=== PATIENT | male | born 1975 | race Hispanic/Latino ===

== ENCOUNTER 2024-06-28 22:15 | Inpatient (IN) | payer BC ==
[2024-06-28 23:33] LABS: #Basophils 0.03 10x3/uL (0.0-0.2); %Basophils 0.3 % (0.0-1.0); %Eosinophils 0.5 % (0.0-10.0); %Monocytes 9.5 % (0.0-10.0); %Neutrophils 67.4 % (42.0-75.0); Hematocrit 39.4 % (42.0-52.0); Hemoglobin 14.8 g/dL (14.0-18.0); Mean Corpuscular HGB CONC 37.6 g/dL (32.0-36.0); Mean Corpuscular Hemoglobin 32.2 pg (27.0-31.0); Mean Corpuscular Volume 85.8 fL (78.0-98.0); Mean Platelet Volume 9.5 fL (7.4-10.4); Platelet Count 251 10x3/uL (130-400); RBC Distribution Width 11.9 % (11.5-14.5); Red Blood Cell (RBC) Count 4.59 mill/uL (4.70-6.10)
[2024-06-28 23:49] LABS: Troponin I Less than 0.010 ng/mL (< 0.028)
[2024-06-29 00:03] LABS: ALT (SGPT) 89 U/L (8-55); AST (SGOT) 42 U/L (5-34); Albumin 3.8 g/dL (3.5-5.0); Alkaline Phosphatase 107 U/L (40-110); Anion Gap 17 mmol/L (10-20); BUN (Urea Nitrogen) 15 mg/dL (8.9-20.6); Bilirubin, Total 0.6 mg/dL (0.2-1.2); Calc. Creatinine Clearance 0 mL/min (70-130); Calcium 9.1 mg/dL (7.8-10.44); Carbon Dioxide 27 mmol/L (22-29); Chloride 92 mmol/L (98-107); Estimated GFR 73; Glucose 296 mg/dL (70-105); Potassium 2.5 mmol/L (3.5-5.1); Protein, Total 7.8 g/dL (6.0-8.3); Sodium 133 mmol/L (136-145)
[2024-06-29 00:30] LABS: Magnesium 2.2 mg/dL (1.6-2.6)
[2024-06-29] MEDS ORDERED: hydrALAZINE 20 MG/ML VIAL ONE (01:09)
[2024-06-29] MEDS ORDERED: Potassium Chloride 20 MEQ TAB ONE (01:09)
[2024-06-29] MEDS ORDERED: Amlodipine 5 MG TAB ONE (01:09)
[2024-06-29] MEDS ORDERED: Ondansetron PF 4 MG/2 ML Vial IVP PRN (01:14)
[2024-06-29] MEDS ORDERED: Labetalol HCl 100 MG/20 ML VIAL ONE (01:26)
[2024-06-29] MEDS ORDERED: niCARdipine 25 MG in Sodium Chloride 0.9% 250 ML 250 ML IVPB SCH (02:45)
[2024-06-29 04:51] LABS: #Basophils 0.04 10x3/uL (0.0-0.2); %Basophils 0.4 % (0.0-1.0); %Lymphocytes 23.9 % (21.0-51.0); %Monocytes 9.7 % (0.0-10.0); %Neutrophils 64.7 % (42.0-75.0); Hematocrit 41.3 % (42.0-52.0); Hemoglobin 15.2 g/dL (14.0-18.0); Mean Corpuscular HGB CONC 36.8 g/dL (32.0-36.0); Mean Corpuscular Hemoglobin 31.7 pg (27.0-31.0); Mean Corpuscular Volume 86.2 fL (78.0-98.0); Mean Platelet Volume 9.7 fL (7.4-10.4); Platelet Count 255 10x3/uL (130-400); RBC Distribution Width 11.9 % (11.5-14.5); Red Blood Cell (RBC) Count 4.79 mill/uL (4.70-6.10)
[2024-06-29 05:03] LABS: Hemoglobin A1c 6.8 % (4.0-6.0)
[2024-06-29 05:04] VITALS: BMI 38.2
[2024-06-29 05:06] LABS: Anion Gap 15 mmol/L (10-20); BUN (Urea Nitrogen) 14 mg/dL (8.9-20.6); Calc. Creatinine Clearance 121 mL/min (70-130); Carbon Dioxide 28 mmol/L (22-29); Chloride 94 mmol/L (98-107); Estimated GFR 81; Glucose 157 mg/dL (70-105); Magnesium 2.2 mg/dL (1.6-2.6); Potassium 2.3 mmol/L (3.5-5.1); Sodium 135 mmol/L (136-145)
[2024-06-29] MEDS: Potassium Chloride 20 MEQ in Premix 1 BAG IVPB SCH (05:29)
[2024-06-29] MEDS: Potassium Chloride 20 MEQ TAB PO SCH ×3 (06:28→21:15)
[2024-06-29] MEDS: Amlodipine 10 MG TAB PO SCH (08:10)
[2024-06-29] MEDS: Lisinopril 20 MG TAB PO SCH (08:13)
[2024-06-29] MEDS ORDERED: Electrolyte Replacement Protocol 1 EACH FS SCH (09:47)
[2024-06-29] MEDS ORDERED: Labetalol HCl 100 MG/20 ML VIAL SLOW IVP PRN (09:47)
[2024-06-29] MEDS: Acetaminophen 325 MG TAB PO PRN (10:16)
[2024-06-29 10:33] LABS: Critical Call Chemistry NUR.AG15; Potassium 2.4 mmol/L (3.5-5.1)
[2024-06-29 12:10] LABS: Bacteria/HPF None Seen HPF (None Seen); Bilirubin Negative (Negative); Blood, Urine Negative (Negative); CAUTI Indications for Culture Dysuria,urgency,freq; Clarity Clear (Clear); Glucose, Urine (Dipstick) 70 mg/dL (Negative); Ketone, Urine Negative (Negative); Leukocyte Negative Leu/uL (Negative); Nitrite Negative (Negative); Protein, Urine (Dipstick) 70 mg/dL (Neg-Trace); RBC/HPF 0-3 HPF (0-3); Specific Gravity, Urine 1.007 (1.002-1.036); Squamous Epithelial None Seen HPF (0-3); Urobilinogen Normal mg/dL (Less than 2); WBC/HPF 0-3 HPF (0-3)
[2024-06-29 12:11] LABS: Amphetamine Not Detected (NotDetected); Barbiturates Screen Not Detected (NotDetected); Benzodiazepine Screen Not Detected (NotDetected); Cocaine Metabolite Screen Not Detected (NotDetected); Methadone Not Detected (NotDetected); Methamphetamine Not Detected (NotDetected); Opiate Screen Not Detected (NotDetected); Oxycodone Screen Not Detected (NotDetected); Phencyclidine (PCP) Not Detected (NotDetected); THC/Cannabinoid Screen Not Detected (NotDetected); Tricyclic Screen Not Detected (NotDetected)
[2024-06-29 12:21] LABS: Urine Culture Reflex No No
[2024-06-29 19:51] LABS: Potassium 2.7 mmol/L (3.5-5.1)
[2024-06-29 20:01] LABS: Anion Gap 14 mmol/L (10-20); BUN (Urea Nitrogen) 23 mg/dL (8.9-20.6); Calc. Creatinine Clearance 73 mL/min (70-130); Calcium 8.8 mg/dL (7.8-10.44); Carbon Dioxide 27 mmol/L (22-29); Chloride 97 mmol/L (98-107); Estimated GFR 44; Glucose 157 mg/dL (70-105); Potassium 2.8 mmol/L (3.5-5.1); Sodium 135 mmol/L (136-145)
[2024-06-29] MEDS ORDERED: Electrolyte Replacement Protocol FS SCH (20:15)
[2024-06-30 05:09] LABS: #Basophils 0.05 10x3/uL (0.0-0.2); %Basophils 0.5 % (0.0-1.0); %Eosinophils 2.1 % (0.0-10.0); Hematocrit 37.1 % (42.0-52.0); Hemoglobin 13.5 g/dL (14.0-18.0); Mean Corpuscular HGB CONC 36.4 g/dL (32.0-36.0); Mean Corpuscular Hemoglobin 31.8 pg (27.0-31.0); Mean Corpuscular Volume 87.5 fL (78.0-98.0); Mean Platelet Volume 9.5 fL (7.4-10.4); Platelet Count 231 10x3/uL (130-400); RBC Distribution Width 12.5 % (11.5-14.5); Red Blood Cell (RBC) Count 4.24 mill/uL (4.70-6.10)
[2024-06-30 05:29] LABS: Anion Gap 13 mmol/L (10-20); BUN (Urea Nitrogen) 22 mg/dL (8.9-20.6); Calc. Creatinine Clearance 88 mL/min (70-130); Calcium 8.6 mg/dL (7.8-10.44); Carbon Dioxide 25 mmol/L (22-29); Chloride 100 mmol/L (98-107); Estimated GFR 55; Glucose 120 mg/dL (70-105); Magnesium 2.3 mg/dL (1.6-2.6); Potassium 2.8 mmol/L (3.5-5.1); Sodium 135 mmol/L (136-145)
[2024-06-30] MEDS: Potassium Chloride 20 MEQ TAB PO SCH ×2 (08:06→20:21)
[2024-06-30 10:21] LABS: Creatinine, Urine 138.69 mg/dL (63-166); Potassium, Urine 18.4 mmol/L
[2024-06-30 17:03] LABS: Anion Gap 12 mmol/L (10-20); BUN (Urea Nitrogen) 20 mg/dL (8.9-20.6); Calc. Creatinine Clearance 108 mL/min (70-130); Calcium 9.3 mg/dL (7.8-10.44); Carbon Dioxide 25 mmol/L (22-29); Chloride 103 mmol/L (98-107); Estimated GFR 70; Glucose 107 mg/dL (70-105); Potassium 3.4 mmol/L (3.5-5.1); Sodium 137 mmol/L (136-145)
[2024-07-01 05:57] LABS: #Basophils 0.04 10x3/uL (0.0-0.2); %Basophils 0.4 % (0.0-1.0); %Eosinophils 1.8 % (0.0-10.0); %Monocytes 10.5 % (0.0-10.0); %Neutrophils 60.9 % (42.0-75.0); Hematocrit 38.1 % (42.0-52.0); Hemoglobin 13.6 g/dL (14.0-18.0); Mean Corpuscular HGB CONC 35.7 g/dL (32.0-36.0); Mean Corpuscular Hemoglobin 32.1 pg (27.0-31.0); Mean Corpuscular Volume 89.9 fL (78.0-98.0); Mean Platelet Volume 9.5 fL (7.4-10.4); Platelet Count 232 10x3/uL (130-400); RBC Distribution Width 12.7 % (11.5-14.5); Red Blood Cell (RBC) Count 4.24 mill/uL (4.70-6.10)
[2024-07-01 06:25] LABS: Anion Gap 11 mmol/L (10-20); BUN (Urea Nitrogen) 19 mg/dL (8.9-20.6); Calc. Creatinine Clearance 111 mL/min (70-130); Calcium 8.7 mg/dL (7.8-10.44); Carbon Dioxide 25 mmol/L (22-29); Chloride 105 mmol/L (98-107); Estimated GFR 71; Glucose 113 mg/dL (70-105); Magnesium 2.1 mg/dL (1.6-2.6); Potassium 3.2 mmol/L (3.5-5.1); Sodium 138 mmol/L (136-145)
[2024-07-01] MEDS: Carvedilol 6.25 MG TAB PO SCH (08:12)
[2024-07-01] MEDS: Potassium Chloride 20 MEQ TAB PO SCH ×2 (09:37→12:25)
[2024-07-01 16:21] VITALS: TEMP 98.1
[2024-07-01 17:03] LABS: Anion Gap 11 mmol/L (10-20); BUN (Urea Nitrogen) 18 mg/dL (8.9-20.6); Calc. Creatinine Clearance 117 mL/min (70-130); Calcium 9.1 mg/dL (7.8-10.44); Carbon Dioxide 24 mmol/L (22-29); Chloride 105 mmol/L (98-107); Estimated GFR 75; Glucose 104 mg/dL (70-105); Potassium 3.5 mmol/L (3.5-5.1); Sodium 136 mmol/L (136-145)
[2024-07-01 18:44] VITALS: BP 148/99
[2024-07-01] MEDS ORDERED: Potassium Chloride 20 MEQ TAB PO SCH (19:30)
[2024-07-02] MEDS ORDERED: FLU (Fluarix Triv) TS24-25(6MOS UP)/PF 45 MCG/0.5 ML Syringe IM ONE (09:00)
== END 2024-07-01 18:53 | disposition home or self-care (01) | DRG 305 ==
LOC: ERS 22:15 → CCU 06-29 00:59 → T4-A 06-29 11:31
PROVIDERS: ADMIT Internal Medicine; ATTEND Student in an Organized Health Care Education/Training Program
DX: I16.0 Hypertensive urgency (principal); I10 Essential (primary) hypertension; E87.6 Hypokalemia; Z98.890 Other specified postprocedural states; Z83.3 Family history of diabetes mellitus; Z87.891 Personal history of nicotine dependence; G47.33 Obstructive sleep apnea (adult) (pediatric); Z79.899 Other long term (current) drug therapy; E11.65 Type 2 diabetes mellitus with hyperglycemia; E66.9 Obesity, unspecified; Z68.39 Body mass index [BMI] 39.0-39.9, adult
CPT/HCPCS: 36415; 71045; 80048; 80053; 80306; 81001; 82088; 82570; 83036; 83735; 84133; 84244; 84443; 84484; 85025; 93005; 93306; 96374; 96375; J0360; J3480